=== PATIENT | male | born 1960 ===

== ENCOUNTER → 2024-02-17 | Outpatient (CLI) | payer BC ==
[2024-02-17 20:15] LABS: Thyroid Stimulating Hormone 4.74 uIU/mL (0.360-4.800); Thyroxine (T4) 6.1 ug/dL (4.5-12.1)
== END | disposition home or self-care (01) ==
LOC: LAB 17:24 → LAB SHORT 17:24
PROVIDERS: Nurse Practitioner Family
DX: E03.9 Hypothyroidism, unspecified (principal)
CPT/HCPCS: 84436; 84443

== ENCOUNTER 2024-11-14 08:42 | Day surgery (SDC) | payer BC ==
[~2024-11-14] VITALS: Ht 172.7 cm; Wt 76.0 kg
[2024-11-14] VITALS (14 sets, daily range): BP systolic 107–157; BP diastolic 61–117
[~2024-11-14 08:42] MED LIST: Lactated Ringer's 1,000 ML IV SCH
[2024-11-14] MEDS ORDERED: propofoL 20 ML IV ONE (08:57)
--- NOTE | 2024-11-14 09:06 | NUR ---
Ambulatory in Day Surgery Patient confirms NPO status and agrees with scheduled surgery. Pre-Op teaching done. Pt verbalizes understanding. History, Chart, Medications and Allergies reviewed before start of procedure.Patient States Post-Procedure ride home has been arranged.
--- NOTE | 2024-11-14 09:34 | NUR ---
11/14/24 0934 Neal Del Toro CONFIRMED AND REVIEWED H&P, MEDCICATIONS, ALLERGIES, MEDICAL HISTORY, RESPIRATORY HISTORY, VITAL SIGNS, 3-LEAD EKG, CONSENTS, AND PHYSICIAN ORDERS. PATIENT CONFIRMS NPO STATUS AND AGREES WITH SCHEDULED PROCEDURE. MONITOR INTACT WITH CONTINUOUS PULSE OXIMETRY, CAPNOGRAPHY, 3-LEAD EKG, INTERMITTENT BP. SUPPLEMENTAL O2 TO BE TITRATED THROUGHOUT PROCEDURE TO MAINTAIN O2 SATURATION ABOVE 90%. PATIENT DETERMINED TO BE ASA APPROPRIATE FOR PROPOFOL SEDATION PRIOR TO START OF PROCEDURE BY DR. JIMENEZ. GLASSES REMOVED AND PLACED ON DRAWER BANK IN DAY SURGERY BAY.
--- NOTE | 2024-11-14 10:26 | NUR ---
Patient up to Ambulate independently. Gait steady. Discharge instructions reviewed with patient. Patient verbalizes understanding. Copy given to patient to take home, [facility]. Patient States Post-Procedure ride home has been arranged. Discharged via wheelchair to private car for ride home. PT REPORTS READY TO GO HOME. TOLERATING PO.
== END 2024-11-14 10:26 | disposition home or self-care (01) ==
LOC: ORSCMMR 08:42 → ORD 09:30 → ORSCMMR 10:26
PROVIDERS: Internal Medicine Gastroenterology
PROC: 0DJD8ZZ Inspection of Lower Intestinal Tract, Via Natural or Artificial Opening Endoscopic (ICD-10-PCS; principal; 2024-11-14 09:30)
DX: Z12.11 Encounter for screening for malignant neoplasm of colon (principal); Z90.49 Acquired absence of other specified parts of digestive tract
CPT/HCPCS: J2704; J7120